=== PATIENT | female | born 1975 | race Hispanic/Latino ===

== ENCOUNTER 2019-08-18 08:23 | Emergency (ER) | payer OTHER, SELFPAY ==
--- NOTE | 2019-08-18 10:04 | ER ---
Nurse's Notes [facility] Name: Eugenia Valenzuela Age: 43 yrs Sex: Female : 1975 Arrival Date: 08/18/2019 Time: 08:25 Bed 14 Private MD: Diagnosis: Radiculopathy, cervical region;Strain of muscle, fascia and tendon at neck level Presentation: 08/17 08:26 Chief complaint: Patient states: PAIN RADIATING FROM R NECK DOWN RUE. Coronavirus bp screen: Proceed with normal triage. Ebola Screen: No symptoms or risks identified at this time. Acute neurological deficit: none identified. Initial Sepsis Screen: Does the patient meet any 2 criteria? HR > 90 bpm. No. Patient's initial sepsis screen is negative. Does the patient have a suspected source of infection? No. Patient's initial sepsis screen is negative. Risk Assessment: Do you want to hurt yourself or someone else? Patient reports no desire to harm self or others. Onset of symptoms was August 18, 2019. 08:26 Method Of Arrival: Ambulatory bp 08:26 Acuity: PERRI 4 bp Triage Assessment: 08:26 General: Appears in no apparent distress. uncomfortable, Behavior is cooperative, bp appropriate for age, anxious, PT STATES CURRENT HTN ABNORMAL, NORMALLY BP WNL. Pain: Complains of pain in right arm. EENT: No deficits noted. Neuro: Level of Consciousness is awake, alert, obeys commands, Oriented to Appropriate for age Tentmaker are equal bilaterally Moves all extremities. Full function. Cardiovascular: Rhythm is sinus tachycardia. Respiratory: No deficits noted. GI: No signs and/or symptoms were reported involving the gastrointestinal system. : No signs and/or symptoms were reported regarding the genitourinary system. Derm: No deficits noted. Musculoskeletal: No deficits noted. 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 - Social history:: Smoking status: Patient denies any tobacco usage or history of. - Family history:: not pertinent. - Hospitalizations: : No recent hospitalization is reported. Screenin:26 Abuse screen: Denies threats or abuse. Denies injuries from another. Nutritional bp screening: No deficits noted. Tuberculosis screening: No symptoms or risk factors identified. Fall Risk None identified. Assessment: 08:26 General: SEE TRIAGE NOTE. Neuro: Oriented to Appropriate for age Tentmaker are equal bp bilaterally Moves all extremities. Full function. 08:42 Reassessment: PT D/C HOME AMBULATORY, DX WITH CERVICAL RADICULOPATHY. bp Vital Signs: 08:26 BP 185 / 99; Pulse 112; Resp 17; Temp 98.6; Pulse Ox 100% ; Weight 54.43 kg; Height 5 bp ft. 2 in. (157.48 cm); 08:26 Body Mass Index 21.95 (54.43 kg, 157.48 cm) bp ED Course: 08:25 Patient arrived in ED. as 08:25 Javier Rg MD is Attending Physician. rn 08:26 Arm band placed on. bp 08:26 Patient has correct armband on for positive identification. Bed in low position. Call bp light in reach. Side rails up X2. 08:37 Tony Mccloud, RN is Primary Nurse. bp 08:38 Triage completed. bp 08:41 No provider procedures requiring assistance completed. Patient did not have IV access bp during this emergency room visit. Administered Medications: No medications were administered Outcome: 08:37 Discharge ordered by . rn 08:41 Discharged to home ambulatory. bp 08:41 Condition: stable 08:41 Discharge instructions given to patient, Instructed on discharge instructions, follow up and referral plans. medication usage, Demonstrated understanding of instructions, follow-up care, medications, Prescriptions given X 2. 08:53 Patient left the ED. bp Signatures: Rosita Scales as Javier Rg MD MD rn Peltier, Brian, RN RN bp
--- NOTE | 2019-08-18 10:04 | EDPHYS ---
Physician Documentation [facility] Name: Eugenia Valenzuela Age: 43 yrs Sex: Female : 1975 Arrival Date: 08/18/2019 Time: 08:25 Bed 14 Private MD: ED Physician Javier Rg HPI: 08/17 08:33 This 43 yrs old Female presents to ER via Unassigned with complaints of Neck rn Pain, >24Hrs Old, Shoulder Pain, Arm Pain. 08:33 The patient or guardian complains of pain, that is acute. The symptoms are located on rn the right posterior lateral neck. Onset: The symptoms/episode began/occurred 2 week(s) ago. Associated signs and symptoms: Pertinent negatives: fever, headache, bladder incontinence, bowel incontinence, numbness, tingling, weakness. The pain radiates to the right arm. Modifying factors: The symptoms are alleviated by nothing. the symptoms are aggravated by movement. Severity of symptoms: At their worst the symptoms were moderate, in the emergency department the symptoms are unchanged. The patient has not experienced similar symptoms in the past. Reports right sided neck pain, began a couple of weeks ago, no trauma, no fever, hurts to turn to side, feels like pain shoots down right arm, no chest pain/sob. No weakness. No headache. . 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 - Social history:: Smoking status: Patient denies any tobacco usage or history of. - Family history:: not pertinent. - Hospitalizations: : No recent hospitalization is reported. 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 Exam: 08:33 Constitutional: This is a well developed, well nourished patient who is awake, alert, rn and in no acute distress. Ambulatory to room without assistance. Head/Face: Normocephalic, atraumatic. Neck: No midline tenderness, No LAD. Cardiovascular: Regular rate and rhythm. No pulse deficits. Respiratory: Speaking full sentences, unlabored. Skin: Warm, dry with normal turgor. Normal color with no rashes, no lesions, and no evidence of cellulitis. MS/ Extremity: Pulses equal, no cyanosis. Neurovascular intact. Full, normal range of motion. Equal circumference. Neuro: Awake and alert, GCS 15, oriented to person, place, time, and situation. Cranial nerves II-XII grossly intact. Motor strength 5/5 in all extremities. Sensory grossly intact. Cerebellar exam normal. Normal gait. Vital Signs: 08:26 BP 185 / 99; Pulse 112; Resp 17; Temp 98.6; Pulse Ox 100% ; Weight 54.43 kg; Height 5 bp ft. 2 in. (157.48 cm); 08:26 Body Mass Index 21.95 (54.43 kg, 157.48 cm) bp MDM: 08:27 Patient medically screened. rn 08:33 Differential diagnosis: Cervical Discogenic Pain Cervical Raiculopathy Cervical rn Spondylosis cervical strain, Osteoarthritis torticollis. Data reviewed: vital signs, nurses notes, and as a result, I will discharge patient. Counseling: I had a detailed discussion with the patient and/or guardian regarding: the historical points, exam findings, and any diagnostic results supporting the discharge/admit diagnosis, the need for outpatient follow up, to return to the emergency department if symptoms worsen or persist or if there are any questions or concerns that arise at home. Special discussion: I discussed with the patient/guardian in detail that at this point there is no indication for admission to the hospital. It is understood, however, that if the symptoms persist or worsen the patient needs to return immediately for re-evaluation. Further emergent ED testing is not indicated at this point in time. I discussed with the patient/guardian in detail the need to arrange with the PCP or specialist further outpatient testing, MRI. Administered Medications: No medications were administered Disposition: 08/18/19 08:37 Discharged to Home. Impression: Radiculopathy, cervical region, Strain of muscle, fascia and tendon at neck level. - Condition is Stable. - Discharge Instructions: Cervical Radiculopathy. - Prescriptions for Cyclobenzaprine 10 mg Oral Tablet - take 1 tablet by ORAL route every 8 hours As needed; 20 tablet. Medrol (Shaquille) 4 mg Oral Tablets, Dose Pack - take 1 tablet by ORAL route as directed - follow package instructions; 1 packet. - Medication Reconciliation Form, Thank You Letter, Antibiotic Education, Prescription Opioid Use, Work release form form. - Follow up: Private Physician; When: As needed; Reason: Recheck today's complaints, Re-evaluation by your physician. - Problem is an ongoing problem. - Symptoms are unchanged. Signatures: Javier Rg MD MD rn Tony Mccloud RN RN bp Corrections: (The following items were deleted from the chart) 08:53 08:37 08/18/2019 08:37 Discharged to Home. Impression: Radiculopathy, cervical region; bp Strain of muscle, fascia and tendon at neck level. Condition is Stable. Forms are Medication Reconciliation Form, Thank You Letter, Antibiotic Education, Prescription Opioid Use. Follow up: Private Physician; When: As needed; Reason: Recheck today's complaints, Re-evaluation by your physician. Problem is an ongoing problem. Symptoms are unchanged. rn
== END 2019-08-18 08:53 | disposition home or self-care (01) ==
LOC: ER 08:23
DX: M54.12 Radiculopathy, cervical region (principal); S16.1XXA Strain of muscle, fascia and tendon at neck level, initial encounter
CPT/HCPCS: 99284

== ENCOUNTER 2019-08-19 19:43 | Emergency (ER) | payer SELFPAY ==
[2019-08-19] MEDS ORDERED: dexAMETHasone 10 MG/ML VIAL ONE (20:25)
--- NOTE | 2019-08-19 21:09 | EDPHYS ---
Physician Documentation [facility] Name: Eugenia Valenzuela Age: 43 yrs Sex: Female : 1975 Arrival Date: 08/19/2019 Time: 19:45 Bed 5 Private MD: ED Physician Maikol Altman HPI: 08/18 20:25 This 43 yrs old Female presents to ER via Ambulatory with complaints of pm1 Numbness in Right Thumb. 20:25 The patient or guardian reports numbness and pain to tip of right thumb. The complaints pm1 affect the palmar aspect of distal phalanx of right thumb. Context: Patient seen here yesterday for the same complaint and was diagnosed with cervical radiculopathy. She was prescribed medrol dose shaquille and flexeril. Has taken two days of medrol dose shaquille and reports resolution of her neck pain but has pain to right forearm and right thumb when the medication, Flexeril runs out. 20:25 Onset: The symptoms/episode began/occurred 2 week(s) ago. Modifying factors: The pm1 symptoms are alleviated by Associated signs and symptoms: Pertinent negatives: fever. Severity of symptoms: in the emergency department the symptoms have improved. The patient has been recently seen at the [facility] Emergency Department, yesterday, for same complaint and diagnosed with cervical radiculopathy. Historical: - Allergies: 20:10 No Known Allergies; sg - PMHx: 20:10 Cervical Radiculopathy; sg - Immunization history:: Adult Immunizations up to date. - Social history:: Smoking status: Patient denies any tobacco usage or history of. ROS: 20:25 Constitutional: Negative for fever, chills, and weight loss. pm1 20:25 Cardiovascular: Negative for chest pain, palpitations, and edema, Respiratory: Negative for shortness of breath, cough, wheezing, and pleuritic chest pain, Abdomen/GI: Negative for abdominal pain, nausea, vomiting, diarrhea, and constipation, Back: Negative for injury and pain. 20:25 Skin: Negative for injury, rash, and discoloration. 20:25 Neck: Positive for neck pain that has resolved, Negative for pain with movement, stiffness. 20:25 MS/extremity: Positive for pain, of the palmar aspect of distal phalanx of right thumb and right arm. 20:25 Neuro: Positive for numbness, tingling, of the palmar aspect of distal phalanx of right thumb, Negative for headache, weakness. Exam: 20:25 Constitutional: This is a well developed, well nourished patient who is awake, alert, pm1 and in no acute distress. Head/Face: Normocephalic, atraumatic. Neck: Trachea midline, no thyromegaly or masses palpated, and no cervical lymphadenopathy. Supple, full range of motion without nuchal rigidity, or vertebral point tenderness. No Meningismus. Chest/axilla: Normal chest wall appearance and motion. Nontender with no deformity. No lesions are appreciated. 20:25 Back: No spinal tenderness. No costovertebral tenderness. Full range of motion. Skin: Warm, dry with normal turgor. Normal color with no rashes, no lesions, and no evidence of cellulitis. MS/ Extremity: Pulses equal, no cyanosis. Neurovascular intact. Full, normal range of motion. 20:25 Cardiovascular: Exam negative for acute changes, Rate: normal, Rhythm: regular, Pulses: no pulse deficits are appreciated. 20:25 Respiratory: Exam negative for acute changes, the patient does not display signs of respiratory distress. 20:25 Neuro: Exam negative for acute changes, focal neuro deficits, Orientation: is normal, Mentation: is normal, Sensation: no obvious gross deficits. Vital Signs: 20:08 BP 142 / 77; Pulse 78; Resp 18; Temp 97.7; Pulse Ox 100% on R/A; Pain 6/10; sg 21:16 BP 161 / 99; Pulse 94; Resp 16; Pulse Ox 99% on R/A; Pain 0/10; jb4 MDM: 20:24 Patient medically screened. pm1 20:24 Data reviewed: vital signs. Data interpreted: Pulse oximetry: on room air is 100 %. pm1 Interpretation: normal. 20:25 Refusal of service: The patient/guardian displays adequate decision making capability pm1 and despite a detailed discussion of alternatives, benefits, risks, and consequences refuses: CT Scan, of neck. Patient reports that her neck pain has resolved but she is continuing to have pain and numbness to tip of right thumb and pain the right forearm when the medication wears off. 21:08 Counseling: I had a detailed discussion with the patient and/or guardian regarding: the pm1 historical points, exam findings, and any diagnostic results supporting the discharge/admit diagnosis, the need for outpatient follow up, to return to the emergency department if symptoms worsen or persist or if there are any questions or concerns that arise at home. 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 pm1 Administered Medications: 20:32 Drug: Decadron 10 mg Route: IM; Site: left gluteus; jb4 21:16 Follow up: Response: No adverse reaction; Pain is decreased jb4 Disposition: 08/19 06:53 Co-signature as Attending Physician, Maikol Altman MD I agree with the assessment and tw4 plan of care. Disposition: 08/19/19 21:08 Discharged to Home. Impression: Radiculopathy, cervical region. - Condition is Stable. - Discharge Instructions: Cervical Radiculopathy. - Prescriptions for Tylenol- Codeine #3 300-30 mg Oral Tablet - take 2 tablets by ORAL route every 6 hours As needed; 20 tablet. Medrol (Shaquille) 4 mg Oral Tablets, Dose Pack - take 1 tablet by ORAL route as directed - follow package instructions; 1 packet. - Medication Reconciliation Form, Thank You Letter, Antibiotic Education, Prescription Opioid Use, Work release form form. - Follow up: Emergency Department; When: As needed; Reason: Worsening of condition. Follow up: Private Physician; When: 2 - 3 days; Reason: Recheck today's complaints, Continuance of care, Re-evaluation by your physician. - Problem is new. - Symptoms have improved. Signatures: Leo Mas RN RN Polo Schultz NP ALARM SIGNAL OPERATOR pm1 Hakan Vazquez RN RN jb4 Maikol Altman MD MD tw4 Corrections: (The following items were deleted from the chart) 08/18 21:22 21:08 08/19/2019 21:08 Discharged to Home. Impression: Radiculopathy, cervical region. jb4 Condition is Stable. Forms are Medication Reconciliation Form, Thank You Letter, Antibiotic Education, Prescription Opioid Use. Follow up: Emergency Department; When: As needed; Reason: Worsening of condition. Follow up: Private Physician; When: 2 - 3 days; Reason: Recheck today's complaints, Continuance of care, Re-evaluation by your physician. Problem is new. Symptoms have improved. pm1
--- NOTE | 2019-08-19 21:09 | ER ---
Nurse's Notes [facility] Name: Eugenia Valenzuela Age: 43 yrs Sex: Female : 1975 Arrival Date: 08/19/2019 Time: 19:45 Bed 5 Private MD: Diagnosis: Radiculopathy, cervical region Presentation: 08/18 20:08 Chief complaint: Patient states: Was seen here and given muscle relaxer and steroids sg for radiculopathy of the neck, reports neck is feeling better but is having pain in numbness from shoulder down to the tumb on the RUE. Coronavirus screen: Proceed with normal triage. Ebola Screen: Patient negative for fever greater than or equal to 101.5 degrees Fahrenheit, and additional compatible Ebola Virus Disease symptoms Patient denies exposure to infectious person. Patient denies travel to an Ebola-affected area in the 21 days before illness onset. No symptoms or risks identified at this time. Initial Sepsis Screen: Does the patient meet any 2 criteria? No. Patient's initial sepsis screen is negative. Does the patient have a suspected source of infection? No. Patient's initial sepsis screen is negative. Risk Assessment: Do you want to hurt yourself or someone else? Patient reports no desire to harm self or others. Onset of symptoms was August 19, 2019. Care prior to arrival: Medication(s) given: Motrin, 800 mg, decreased pain. 20:08 Acuity: PERRI 4 sg 20:08 Method Of Arrival: Ambulatory sg Historical: - Allergies: 20:10 No Known Allergies; sg - PMHx: 20:10 Cervical Radiculopathy; sg - Immunization history:: Adult Immunizations up to date. - Social history:: Smoking status: Patient denies any tobacco usage or history of. Screenin:08 Abuse screen: Denies threats or abuse. Nutritional screening: No deficits noted. jb4 Tuberculosis screening: No symptoms or risk factors identified. Fall Risk None identified. Assessment: 20:00 General: Appears in no apparent distress. uncomfortable, Behavior is calm, cooperative. jb4 Pain: Complains of pain in Right thumb Pain radiates to right arm Pain currently is 6 out of 10 on a pain scale. Quality of pain is described as tingling, Numbing Pain began 1 day ago. Is continuous. Neuro: Level of Consciousness is awake, alert, obeys commands, Oriented to person, place, time, situation. Cardiovascular: Patient's skin is warm and dry. Respiratory: Airway is patent Respiratory effort is even, unlabored, Respiratory pattern is regular, symmetrical. GI: No signs and/or symptoms were reported involving the gastrointestinal system. : No signs and/or symptoms were reported regarding the genitourinary system. EENT: No signs and/or symptoms were reported regarding the EENT system. Derm: Skin is intact, Skin is pink, warm \T\ dry. Musculoskeletal: Circulation, motion, and sensation intact. Range of motion: intact in all extremities. 21:21 Reassessment: Patient appears in no apparent distress at this time. Patient and/or jb4 family updated on plan of care and expected duration. Pain level reassessed. Patient is alert, oriented x 3, equal unlabored respirations, skin warm/dry/pink. PT reports still feeling numbness but overall feels better and denies pain. Pt verbalized understanding of D/c and follow up instructions. Denies questions or concerns. Patient denies pain at this time. Vital Signs: 20:08 BP 142 / 77; Pulse 78; Resp 18; Temp 97.7; Pulse Ox 100% on R/A; Pain 6/10; sg 21:16 BP 161 / 99; Pulse 94; Resp 16; Pulse Ox 99% on R/A; Pain 0/10; jb4 ED Course: 19:45 Patient arrived in ED. cf2 20:00 Hakan Vazquez, RN is Primary Nurse. jb4 20:08 Patient has correct armband on for positive identification. Bed in low position. Call jb4 light in reach. Side rails up X 1. Pulse ox on. NIBP on. 20:09 Polo Schultz NP is PHCP. pm1 20:09 Maikol Altman MD is Attending Physician. pm1 20:09 Triage completed. sg 20:10 Arm band placed on. sg 21:22 No provider procedures requiring assistance completed. Patient did not have IV access jb4 during this emergency room visit. Administered Medications: 20:32 Drug: Decadron 10 mg Route: IM; Site: left gluteus; jb4 21:16 Follow up: Response: No adverse reaction; Pain is decreased jb4 Outcome: 21:08 Discharge ordered by . pm1 21:22 Discharged to home ambulatory. jb4 21:22 Condition: stable 21:22 Discharge instructions given to patient, Instructed on discharge instructions, follow up and referral plans. medication usage, Demonstrated understanding of instructions, follow-up care, medications, Prescriptions given X 2. 21:22 Patient left the ED. jb4 Signatures: Leo Mas RN RN sg Polo Schultz, PRACTICE ARCHITECT PRACTICE ARCHITECT pm1 Hakan Vazquez RN RN jb4 Maura Ponce cf2 Corrections: (The following items were deleted from the chart) 21:21 21:16 BP 161 / 99; Pulse 94bpm; Resp 16bpm; Pulse Ox 99% RA; Pain 6/10; jb4 jb4
[2019-08-19 21:53] VITALS: TEMP 97.7
[2019-08-19 21:54] VITALS: BP 161/99; O2SAT 99
== END 2019-08-19 21:22 | disposition home or self-care (01) ==
LOC: ER 19:43
DX: M54.12 Radiculopathy, cervical region (principal)
CPT/HCPCS: 96372; 99283; J1100

== ENCOUNTER 2022-05-01 09:18 | Emergency (ER) | payer SELFPAY ==
--- OUTSIDE RECORDS SUMMARY | 2022-05-01 09:22 | XMS REPORT | Continuity of Care Document ---
:1975 Author Organization [facility] [place] [facility] t Address [address] [place] [address] [address]. [address] [place] [address] Care Team Providers Name Role Phone Jenny Vizcarra Primary Care Physician Jenny Vizcarra Attending Clinician Ronal Castillo MD Attending Clinician [facility] Attending Clinician JENNY FIGUEROA Attending Clinician Unavailable DAIANA SANTO Attending Clinician Unavailable Doctor Unassigned, [place] Attending Clinician Unavailable Mary Tello RN Attending Clinician Unavailable Only, Jordy Db Test Attending Clinician Unavailable Rena Caro Attending Clinician RENA GUTIERRES Attending Clinician Unavailable Vaccine, Adc Family Attending Clinician Unavailable JULIO CESAR VILLEDA Attending Clinician Unavailable Julio Cesar Villeda MD Attending Clinician Provider, [facility] Attending Clinician Unavailable Christianne Higginbotham Attending Clinician [phone] CHRISTIANNE PATINO Attending Clinician Unavailable CHRISTIANNE PATINO Admitting Clinician Unavailable Payers Payer Name Policy Type Policy Number Effective Date Expiration Date S ource Problems Condition Condition Condition Status Onset Resolution Last Treating Co mments Source Name Details Category Date Date Treatment Clinician Date Uncontroll Uncontroll Disease Active [facility] 3[facility] [place] Tobacco Tobacco Disease Active Univers use use 3-18 ity of disorder disorder 00:00: [place] 00 [facility] Other Other Disease Active Univers general general 2-05 [place] of counseling [place] and advice 00 Wi dical for for Branch contracept contracept meme meme management management Elevated Elevated Disease Active Unive rs blood blood 2-05 ity of pressure pressure 00:00: [place] reading reading 00 Medical without without Branch diagnosis diagnosis of of hypertensi hypertensi on on Over Over Disease Active Univers weight weight 2-05 ity of 00:00: [place] 00 [facility] History of History of Disease Active U nivers tubal tubal 2-05 ity of ligation ligation 00:00: [address] Allergies, Adverse Reactions, Alerts This patient has no known allergies or adverse reactions. Social History Social Habit Start Date Stop Date Quantity Comments Source History of tobacco Cigarette Smoker University of use [facility] Cigarettes smoked 2021-06-18 2021-06-18 Univers ity of current (pack per 00:00:00 00:00:00 [facility] ) - Reported Branch Cigarette 2021-06-18 2021-06-18 University of pack-years 00:00:00 00:00:00 [facility] Tobacco use and 2021-06-18 2021-06-18 Smokeless Universit y of exposure 00:00:00 00:00:00 tobacco non-user [facility] Alcohol intake 2021-06-18 2021-06-18 Current drinker Unive rsity of 00:00:00 00:00:00 of alcohol [facility] (finding) [place] Sex Ass[birth year] Universit y of 00:00:00 00:00:00 [facility] Smoking Status Start Date Stop Date Source Occasional tobacco smoker 2021-06-18 00:00:00 Un iversity of [facility] Medications Ordered Filled Start Stop Current Ordering Indication Dosage Frequency Signature Comments Components Source Medication Medication Date Date Medication? Clinician (SIG) Name Name amLODIPine Yes [id number] 5mg Take 1 U nivers 5 mg tablet 9-26 tablet by ity of 00:00: mouth in [place] 00 the Medical morning. Branch Follow-up for refills and fasting labs. amLODIPine 2021-0 Yes [id number] 5mg Take 1 U nivers 5 mg tablet 9-26 tablet by ity of 00:00: mouth in [place] 00 the Medical morning. Branch Follow-up for refills and fasting labs. AMLODIPINE 2021-0 Yes [id number] 5mg TAKE 1 U nivers 5 mg tablet 7-10 TABLET BY ity of 00:00: MOUTH [place] 00 DAILY. Medical FOLLOW-UP Branch FOR REFILLS AND FASTING LABS. AMLODIPINE 2021-0 2022- No [id number] 5mg TAKE 1 Univers 5 mg tablet 7-10 09-22 TABLET BY it y of 00:00: 00:00 MOUTH [place] 00 :00 DAILY. Medical FOLLOW-UP Branch FOR REFILLS AND FASTING LABS. amLODIPine 2021-0 2022- No [id number] 5mg Take 1 Univers 5 mg tablet 6-12 07-10 tablet by it y of 00:00: 00:00 mouth [place] 00 :00 daily. Medical Follow-up Branch for refills and fasting labs. Immunizations Ordered Filled Immunization Date Status Comments [facility] e Immunization Name Name SARS-COV-2 COVID-19 2020-11-01 Completed Unive rsity of PFIZER VACCINE 00:00:00 [facility] SARS-COV-2 COVID-19 2020-11-01 Completed Unive rsity of PFIZER VACCINE 00:00:00 [facility] SARS-COV-2 COVID-19 2020-11-01 Completed Unive rsity of PFIZER VACCINE 00:00:00 [facility] SARS-COV-2 COVID-19 2020-10-11 Completed Unive rsity of PFIZER VACCINE 00:00:00 [facility] SARS-COV-2 COVID-19 2020-10-11 Completed Unive rsity of PFIZER VACCINE 00:00:00 [facility] SARS-COV-2 COVID-19 2020-10-11 Completed Unive rsity of PFIZER VACCINE 00:00:00 [facility] TDAP 2016-12-22 Completed University of 00:00:00 [facility] TDAP 2016-12-22 Completed University 00:00:00 [facility] TDAP 2016-12-22 Completed University 00:00:00 [facility] Procedures This patient has no known procedures. Encounters Start End Encounter Admission Attending Care Care Encounter Source Date/Time Date/Time Type Type Clinicians Facility Department ID 2022-01-25 2022-01-25 [facility] [id number] [id number] Univers 00:00:00 00:00:00 Jenny A HEALTH [id number] i ty of [place] 4.2.7.2.686 Sajan as MERRY?BLEA [phone] [address] OFFICE [facility] 2021-12-23 2021-12-23 [facility] [id number] Univers 00:00:00 00:00:00 Jenny A HEALTH [id number] i ty of [place] [id number] Sajan as MERRY?BLEA [id number] [address] 2021-10-05 2021-10-05 [facility] [id number] Univers 00:00:00 00:00:00 Jenny A HEALTH [id number] i ty of [place] [id number] Sajan as MERRY?BLEA [id number] [address] 2021-09-09 2021-09-09 [facility] [id number] Univers 00:00:00 00:00:00 Ronal HEALTH [id number] it y of [place] [id number] Sajan as MERRY?BLEA [id number] [address] 2021-08-13 2021-08-13 [facility] [id number] Univers 00:00:00 00:00:00 Ronal HEALTH [id number] it y of [place] [id number] Sajan as MERRY?BLEA [id number] [address] 2021-07-19 2021-07-19 [facility] [id number] Univers 00:00:00 00:00:00 Jenny A HEALTH [id number] i ty of [place] [id number] Sajan as MERRY?BLEA [id number] [address] OFFICE [facility] 2021-07-17 2021-07-17 [facility] [id number] Univers 00:00:00 00:00:00 Jenny A HEALTH [id number] i ty of [place] [id number] Sajan as MERRY?BLEA [id number] [address] OFFICE [facility] 2021-06-21 2021-06-21 [facility] 1.2.840.114 [id number] Univers 00:00:00 00:00:00 Outreach Annie Campbell HEALTH 350.1.13.10 i ty of [place] 4.2.7.2.686 Sajan as MERRY?BLEA [id number] [address] OFFICE [facility] 2021-06-18 2021-06-18 [facility] [id number] Univers 10:00:00 10:00:00 [facility] 2021-06-12 2021-06-12 Outpatient R HANSA [facility] [id number] Univers 17:00:00 17:00:00 [facility]IA[facility] 2021-06-12 2021-06-12 Orders Doctor MACARIO [id number] Univers 00:00:00 00:00:00 Only UnassignedMARLENA 350.1.13.10 ity of [place] [facility] 4.2.7.2.686 Sajan as [phone] [facility] 009 [place] 2021-04-18 2021-04-18 Telephone RENALDO Tello [id number] Univers 00:00:00 00:00:00 Mary MENDIOLA 350.1.13.10 i ty of [facility] 4.2.7.2.686 Sajan as [id number] [facility] 019 [place] 2021-04-17 2021-04-17 Laboratory Only, Ang Db Test [facility] 1.2.8 40.114 [id number] Univers 12:45:00 13:00:00 Only Rena Gutierres [facility] 350.1.13.10 ity of [place] 4.2.7.2.686 Sajan as MERRY?BLEA [phone] Wi tatyana [facility] OFFICE BUILDING 2021-04-17 2021-04-17 Outpatient R NENITA [facility] [id number] Univers 12:45:00 12:45:00 RENA [facility] 2020-11-01 2020-11-01 Outpatient R NENITA [facility] [id number] Univers 09:40:00 10:28:44 RENA [facility] 2020-11-01 2020-11-01 Imm/Inj Vaccine, [facility] 1.2.84 0.114 [id number] Univers 09:35:55 09:45:55 Visit Rena Gutierres [facility] [id number] ity of [place] 4.2.7.2.686 Sajan as Professio [id number] [address] One 2020-11-01 2020-11-01 Outpatient R RONAL [facility] [id number] Univers 09:30:00 09:30:00 JULIO CESAR [facility] 2020-10-11 2020-10-11 Imm/Inj Vaccine, [facility] 1.2.84 0.114 [id number] Univers 09:43:58 10:29:19 Visit Julio Cesar Villeda [facility] 350.1.13.10 ity of [place] 4.2.7.2.686 Sajan as Professio [phone] [address] Office [facility] One 2020-10-11 2020-10-11 Urgent Provider, [facility] 1.2.840.114 [id number] Univers 08:57:06 10:28:34 Care Julio Cesar Villeda Health 350.1.13.10 ity of [place] 4.2.7.2.686 Sajan as Professio [id number] [address] Office [facility] 2020-10-11 2020-10-11 Outpatient R RONAL [facility] [id number] Univers 09:20:00 09:20:00 JULIO CESAR ity of [facility] 2020-06-12 2020-06-12 [facility] [id number] Univers 12:53:33 13:32:20 Visit Christianne C SOLVENT RECOVERER 350.1.13.10 ity of [facility] 4.2.7.2.686 Sajan as MATERNAL [id number] [facility] [address] [place] [address] 2020-06-12 2020-06-12 [facility] [id number] Univers 13:15:00 13:15:[address] [facility] 2020-06-03 2020-06-03 [facility] [id number] Univers 06:30:13 23:59:[address] [facility] 2020-06-03 2020-06-03 [facility] 1.2.840.114 [id number] Univers 06:30:13 23:59:00 Encounter Christianne C SPECIALTY 350.1.13.10 ity of [place]2.[place] [phone] Wi mikael[address] 2020-05-14 2020-05-14 Telephone [facility] 1.2.840.114 [id number] Univers 00:00:00 00:00:00 Christianne C SOLVENT RECOVERER 350.1.13.10 ity of REGIONAL 4.2.7.2.686 Sajan as MATERNAL [phone] [facility] [address] [place] [address] 2020-05-08 2020-05-08 [facility] [id number] Univers 12:45:28 13:45:29 Visit Christianne C SOLVENT RECOVERER 350.1.13.10 ity of REGIONAL 4.2.7.2.686 Sajan as MATERNAL [phone] [facility] & CHILD [address] [place] [address] 2020-05-08 2020-05-08 [facility] [id number] Univers 12:45:00 12:45:00 CHRISTIANNE graham o f [facility] 2020-05-08 2020-05-08 Orders Doctor RENALDO [id number] [facility] 00:00:00 00:00:00 Only Unassigned, MARLENA 350.1.13.10 ity of [place] [facility] 4.2.7.2.686 Sajan as [phone] [facility] 009 Branch Results This patient has no known results.
[2022-05-01] MEDS ORDERED: TDAP (DIPHTH,PERTUSS(ACELL),TET VAC) 0.5 ML VIAL IMVAC ONE (09:52)
[2022-05-01] MEDS ORDERED: SMZ./TMP. 800/160 MG TABLET ONE (09:52)
[2022-05-01] MEDS ORDERED: LIDOCAINE 1% MPF 5 ML VIAL ONE (09:52)
--- NOTE | 2022-05-01 10:03 | EDPHYS ---
Physician Documentation [facility] Name: Eugenia Valenzuela Age: 46 yrs Sex: Female : 1975 Arrival Date: 05/01/2022 Time: 09:21 Bed 13 Private MD: Antonino Tejeda HPI: 05/01 09:37 This 46 yrs old Female presents to ER via Ambulatory with complaints of snw Abscess. 09:37 Onset: The symptoms/episode began/occurred 3 week(s) ago, and became persistent. snw Associated signs and symptoms: The patient has no apparent associated signs or symptoms. Severity of symptoms: At their worst the symptoms were moderate. The patient has not experienced similar symptoms in the past. The patient has not recently seen a physician. 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 - Social history:: Smoking status: Patient reports the use of cigarette tobacco products, smokes one-half pack cigarettes per day, Patient uses alcohol, on a daily basis. ROS: 09:37 Skin: Positive for abscess, of the pelvis. snw Exam: 09:35 Constitutional: This is a well developed, well nourished patient who is awake, alert, snw and in no acute distress. Head/Face: Normocephalic, atraumatic. Eyes: Pupils equal round and reactive to light, extra-ocular motions intact. Lids and lashes normal. Conjunctiva and sclera are non-icteric and not injected. Cornea within normal limits. Periorbital areas with no swelling, redness, or edema. ENT: Nares patent. No nasal discharge, no septal abnormalities noted. Tympanic membranes are normal and external auditory canals are clear. Oropharynx with no redness, swelling, or masses, exudates, or evidence of obstruction, uvula midline. Mucous membranes moist. 09:35 Skin: Appearance: normal except for affected area, abscess, that is small, approximately 2 cm(s), of the low left lateral pelvis. Vital Signs: 09:26 BP 177 / 81; Pulse 103; Resp 18; Temp 98.0(O); Pulse Ox 100% on R/A; Weight 65.77 kg; ld1 Height 5 ft. 2 in. (157.48 cm); Pain 4/10; 10:22 BP 162 / 104; Pulse 98; Resp 18; Pulse Ox 100% on R/A; db 09:26 Body Mass Index 26.52 (65.77 kg, 157.48 cm) ld1 Procedures: 09:37 I \T\ D: Incision and drainage was performed for an abscess of the left Prepped with snw suraj. Anesthetized with 5 ml's 1% Lidocaine. Incised with #10 blade. Drained small amount purulent fluid. Loculations removed. Dressing: sterile 4x4 gauze, the patient tolerated the procedure well. MDM: 09:22 Patient medically screened. snw 09:46 Differential diagnosis: abscess, cellulitis. Data reviewed: vital signs, nurses notes. snw I considered the following discharge prescriptions or medication management in the emergency department Medications were administered in the Emergency Department. See MAR. Care significantly affected by the following chronic conditions: smoking. Counseling: I had a detailed discussion with the patient and/or guardian regarding: the historical points, exam findings, and any diagnostic results supporting the discharge/admit diagnosis, the presence of at least one elevated blood pressure reading (>120/80) during this emergency department visit, the need for outpatient follow up, for definitive care, to return to the emergency department if symptoms worsen or persist or if there are any questions or concerns that arise at home. Counseling: I had a detailed discussion with the patient and/or guardian regarding: smoking cessation. Response to treatment: the patient's symptoms have markedly improved after treatment. Special discussion: I have referred the patient to see his PCP for further evaluation of high blood pressure. Based on the history and exam findings, there is no indication for further emergent testing or inpatient evaluation. I discussed with the patient/guardian the need to see the primary care provider for further evaluation of the symptoms. 05/01 09:41 Order name: Suture Tray Setup; Complete Time: 09:55 snw Administered Medications: 09:50 Drug: Lidocaine (1 %) 5 mg Volume: 5 ml; Route: Infiltration; db 10:18 Follow up: Response: No adverse reaction; used by provider in I\T\D db 09:50 Drug: Hibiclens (chlorhexidine) Liquid 4 % 1 application Route: Topical; Site: wound; db 09:50 Drug: Boostrix Tdap 0.5 ml Route: IM; Site: right deltoid; db 10:18 Follow up: Response: No adverse reaction db 09:50 Drug: Bactrim (trimethoprim-sulfamethoxazole) (160 mg-800 mg (DS) 1 tablet Route: PO; db 10:18 Follow up: Response: No adverse reaction db Disposition: 10:03 Chart complete. snw Disposition Summary: 05/01/22 10:02 Discharge Ordered Location: Home snw Condition: Stable snw Diagnosis - Cutaneous abscess, unspecified snw Followup: snw - With: Emergency Department - When: As needed - Reason: Worsening of condition Followup: snw - With: Private Physician - When: 2 - 3 days - Reason: Recheck today's complaints, Continuance of care, Re-evaluation by your physician Discharge Instructions: - Discharge Summary Sheet snw - Skin Abscess snw - Incision and Drainage snw - Steps to Quit Smoking snw - Health Risks of Smoking snw - DASH Eating Plan snw - Heat Therapy snw - Form - Blood Pressure Record Sheet snw - How to Take Your Blood Pressure snw Forms: - Work release form snw - Medication Reconciliation Form snw - Thank You Letter snw - Antibiotic Education snw - Prescription Opioid Use snw Prescriptions: - mupirocin 2 % Topical ointment - apply 1 application by TOPICAL route 3 times per day for 10 days; 50 gram; snw Refills: 0, Product Selection Permitted - Tramadol 50 mg Oral Tablet - take 1 tablet by ORAL route every 8 hours as needed; 12 tablet; Refills: 0, snw Product Selection Permitted - Bactrim DS 800-160 mg Oral Tablet - take 1 tablet by ORAL route every 12 hours for 10 days; 20 tablet; Refills: 0, snw Product Selection Permitted Signatures: Sharon Martínez FNP-C FNP-Csnw Janeth Kim, RN RN ld1 Yoselyn Brown, RN RN db
--- NOTE | 2022-05-01 10:03 | ER ---
Nurse's Notes [facility] Name: Eugenia Valenzuela Age: 46 yrs Sex: Female : 1975 Arrival Date: 05/01/2022 Time: 09:21 Bed 13 Private MD: Diagnosis: Cutaneous abscess, unspecified Presentation: 05/01 09:26 Chief complaint: Patient states: abscess to groin - 2-3 days ago. Reports pain and ld1 swelling - "I think it may need to be drained.". Coronavirus screen: At this time, the client does not indicate any symptoms associated with coronavirus-19. Ebola Screen: No symptoms or risks identified at this time. Initial Sepsis Screen: Does the patient meet any 2 criteria? No. Patient's initial sepsis screen is negative. Does the patient have a suspected source of infection? No. Patient's initial sepsis screen is negative. Risk Assessment: Do you want to hurt yourself or someone else? Patient reports no desire to harm self or others. Onset of symptoms was May 01, 2022. 09:26 Method Of Arrival: Ambulatory ld1 09:26 Acuity: PERRI 4 ld1 Triage Assessment: 09:27 General: Appears in no apparent distress. comfortable, Behavior is calm, cooperative, ld1 appropriate for age. Pain: Complains of pain in pelvis Pain does not radiate. Pain currently is 4 out of 10 on a pain scale. Quality of pain is described as throbbing. EENT: No signs and/or symptoms were reported regarding the EENT system. Neuro: Level of Consciousness is awake, alert, obeys commands, Oriented to person, place, time, situation. Cardiovascular: Capillary refill < 3 seconds Patient's skin is warm and dry. Respiratory: Airway is patent Respiratory effort is even, unlabored. GI: Abdomen is flat, non-distended. : No signs and/or symptoms were reported regarding the genitourinary system. Derm: Abscess located on pelvis. Musculoskeletal: No signs and/or symptoms reported regarding the musculoskeletal system. 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 - Social history:: Smoking status: Patient reports the use of cigarette tobacco products, smokes one-half pack cigarettes per day, Patient uses alcohol, on a daily basis. Screenin:58 [facility] ED Fall Risk Assessment (Adult) History of falling in the last 3 months, db including since admission No falls in past 3 months (0 pts) Confusion or Disorientation No (0 pts) Intoxicated or Sedated No (0 pts) Impaired Gait No (0 pts) Mobility Assist Device Used No (0 pt) Altered Elimination No (0 pt) Score/Fall Risk Level 0 - 2 = Low Risk Oriented to surroundings, Maintained a safe environment. Abuse screen: Denies threats or abuse. Denies injuries from another. Nutritional screening: No deficits noted. Tuberculosis screening: No symptoms or risk factors identified. Assessment: 09:35 Reassessment: Patient appears in no apparent distress at this time. Patient and/or db family updated on plan of care and expected duration. Pain level reassessed. Patient is alert, oriented x 3, equal unlabored respirations, skin warm/dry/pink. patient has abscess to left inner groin. General: Appears in no apparent distress. comfortable, Behavior is calm, cooperative. Pain: Complains of pain in groin. Neuro: No deficits noted. Level of Consciousness is awake, alert, obeys commands, Oriented to person, place, time, situation. Cardiovascular: No deficits noted. Respiratory: No deficits noted. Airway is patent Respiratory effort is even, unlabored, Respiratory pattern is regular, symmetrical. GI: No deficits noted. No signs and/or symptoms were reported involving the gastrointestinal system. : No deficits noted. No signs and/or symptoms were reported regarding the genitourinary system. 09:55 Reassessment: I\\T\\D supplies placed at bedside. Notified provider Martínez lidocaine at db bedside as well. Vital Signs: 09:26 BP 177 / 81; Pulse 103; Resp 18; Temp 98.0(O); Pulse Ox 100% on R/A; Weight 65.77 kg; ld1 Height 5 ft. 2 in. (157.48 cm); Pain 4/10; 10:22 BP 162 / 104; Pulse 98; Resp 18; Pulse Ox 100% on R/A; db 09:26 Body Mass Index 26.52 (65.77 kg, 157.48 cm) ld1 ED Course: 09:21 Patient arrived in ED. rg4 09:22 Sharon Martínez [facility]-C [facility] snw 09:22 Antonino Yun MD is Attending Physician. snw 09:27 Triage completed. ld1 09:27 Arm band placed on right wrist. ld1 09:31 Yoselyn Brown, RN is Primary Nurse. db 09:59 Assist provider with I \\T\\ D: Patient tolerated well. db 10:22 Patient has correct armband on for positive identification. Bed in low position. Call db light in reach. Side rails up X 1. 10:22 Patient did not have IV access during this emergency room visit. db Administered Medications: 09:50 Drug: Lidocaine (1 %) 5 mg Volume: 5 ml; Route: Infiltration; db 10:18 Follow up: Response: No adverse reaction; used by provider in I\\T\\D db 09:50 Drug: Hibiclens (chlorhexidine) Liquid 4 % 1 application Route: Topical; Site: wound; db 09:50 Drug: Boostrix Tdap 0.5 ml Route: IM; Site: right deltoid; db 10:18 Follow up: Response: No adverse reaction db 09:50 Drug: Bactrim (trimethoprim-sulfamethoxazole) (160 mg-800 mg (DS) 1 tablet Route: PO; db 10:18 Follow up: Response: No adverse reaction db Medication: 10:22 VIS not applicable for this client. db Intake: Outcome: 10:02 Discharge ordered by . snw 10:22 Discharged to home ambulatory. db 10:22 Condition: stable 10:22 Discharge instructions given to patient, Instructed on discharge instructions, follow up and referral plans. Demonstrated understanding of instructions, Prescriptions given X 3. 10:28 Patient left the ED. db Signatures: Sharon Martínez FNP-C GRILL CHEF-Chana Ochoa rg4 Janeth Kim RN RN ld1 Yoselyn Brown, RN RN db
[2022-05-01 10:34] VITALS: TEMP 98; O2SAT 100
[2022-05-01 10:35] VITALS: BP 162/104
== END 2022-05-01 10:28 | disposition home or self-care (01) ==
LOC: ER 09:18
PROC: 0H9AXZZ Drainage of Inguinal Skin, External Approach (ICD-10-PCS; principal; 2022-05-01)
DX: L02.214 Cutaneous abscess of groin (principal); F17.210 Nicotine dependence, cigarettes, uncomplicated
CPT/HCPCS: 96372; 99283; J2001

== ENCOUNTER 2024-04-17 10:45 | Emergency (ER) | payer BC ==
--- OUTSIDE RECORDS SUMMARY | 2024-04-17 10:50 | XMS REPORT | Continuity of Care Document ---
Author Name Unknown Address [address] [facility] [place] [address] [facility] thconnect Address [address] [facility] [address] [place] [address] Care Team Providers Care Apprentice Painter Brush Name Role Phone Jenny Vizcarra Primary Care Physician + [phone] Doctor Unassigned, Maybee Attending Clinician U Jenny Evans Attending Clinician [phone] JENNY FIGUEROA Attending Clinician Unavailable Ofelia Medrano Attending Clinician [phone] Unknown, Attending Attending Clinician Unavailab OFELIA Coe Attending Clinician Unavailable Lab, Ang - Db Attending Clinician Unavailable Jenny Vizcarra Attending Clinician [phone] Doctor Unassigned, Maybee Attending Clinician U Rena Obregon Attending Clinician [phone] Unknown, Attending Attending Clinician Unavailab RENA Garcia Attending Clinician Unavailable Lab, Ang - Db Attending Clinician Unavailable WAQAR BEEBE Attending Clinician Unavailable DAIANA HAMPTON Attending Clinician Unavailable Daiana Galvan Attending Clinician [phone] ANTOINE SANCHEZ Attending Clinician Unavailable Daniel COLEMAN, Antoine Attending Clinician [phone] Fabian Castillo MD Attending Clinician [phone] Annie Cutler LMSW Attending Clinician [phone] Omer ALBARRAN, Mary Francis Attending Clinician Unavaila ble Only, Jordy Db Test Attending Clinician Unavailabl e Vaccine, Adc Family Attending Clinician Unavaila JULIO CESAR [place] Attending Clinician Unavailable Julio Cesar Villeda MD Attending Clinician [phone] Provider, [facility] Attending Clinician Un available Christianne Higginbotham Attending Clinician + CHRISTIANNE RIZO Attending Clinician Unavail able CHRISTIANNE RIZO Admitting Clinician Unavail able Payers Payer Name Policy Type Policy Number Effective Date Expirati on Date Source Problems Condition Name Condition Details Condition Category Status Onset Date Resolution Date Last Treatment Date Treating Clinician Comments Source Uncontroll ed hypertensi on Uncontroll ed hypertensi on Disease Active 06-18 00:00: 00 [facility] Tobacco use disorder Tobacco use disorder Disease Active 18 00:00: 00 [facility] Other general counseling and advice for contracept meme management Other general counseling and advice for contracept meme management Disease Active 2-05 00:00: 00 [facility] Elevated blood pressure reading without diagnosis of hypertensi on Elevated blood pressure reading without diagnosis of hypertensi on Disease Active 2-05 00:00: 00 [facility] Over weight Over weight Disease Active 2-05 00:00: 00 [facility] History of tubal ligation History of tubal ligation Disease Active 2-05 00:00: 00 [facility] Allergies, Adverse Reactions, Alerts Allergy Name Allergy Type Status Severity Reaction(s) Onset Date Inactive Date Treating Clinician Comments Source NO KNOWN ALLERGIE S Drug Class Active [facility] Social History Social Habit Start Date Stop Date Quantity Comments Source [facility] of tobacco use Cigarette Smoker [facility] Alcoholic beverage intake 2023-12-06 00:00:00 2023-12-06 00:00:00 Current drinker of alcohol (finding) [facility] Cigarettes smoked current (pack per day) - Reported 2023-10-28 00:00:00 2023-10-28 00:00:00 [facility] Cigarette pack-years 2023-10-28 00:00:00 2023-10-28 00:00:00 [facility] Tobacco use and exposure 2023-10-28 00:00:00 2023-10-28 00:00:00 Smokeless tobacco non-user [facility] History of Social function 2023-06-29 00:00:00 2023-06-29 00:00:00 [facility] Alcohol intake 2023-06-29 00:00:00 2023-06-29 00:00:00 Current drinker of alcohol (finding) [facility] Exposure to SARS-CoV-2 (event) 2021-05-19 00:00:00 2021-06-18 09:50:00 Not sure [facility] Sex assigned at 1975 00:00:00 1975 00:00:00 [facility] Smoking Status Start Date Stop Date Source Smokes tobacco daily 2023-10-28 00:00:00 [facility] Occasional tobacco smoker 2021-06-18 00:00:00 [facility] Medications Ordered Medication Name Filled Medication Name Start Date Stop Date Current Medication? Ordering Clinician Indication Dosage Frequency Signature (SIG) Comments Components Source amLODIPine 5 mg tablet 2023-04 00:00: 00 Yes [id number] 5mg Take 1 tablet by mouth in the morning. [facility] benzonatate 200 mg capsule 2023-04 00:00: 00 03-09 05:59 :00 Yes [id number] 200mg Take 1 capsule by mouth 3 (three) times daily as needed for Cough for up to 10 days. [facility] fluticasone propionate 50 mcg/actuati on nasal spray 2023-04 00:00: 00 03-06 05:59 :00 Yes [id number] 1{spray } Use 1 [place] in each nostril in the morning for 7 days. [facility] ferrous sulfate 325 mg (65 mg iron) tablet 9- 00:00: 00 03-13 00:00 :00 No [id number] 325mg Take 1 tablet by mouth in the morning and 1 tablet in the evening. [facility] ferrous sulfate 325 mg (65 mg iron) tablet 12-07 00:00: 00 12-11 00:00 :00 No [id number] 325mg Take 1 tablet by mouth in the morning and 1 tablet in the evening. [facility] amLODIPine 5 mg tablet 12-05 00:00: 00 03-13 00:00 :00 No [id number] 5mg Take 1 tablet by mouth in the morning. [facility] amLODIPine 5 mg tablet 11-19 00:00: 00 12-05 00:00 :00 No [id number] 5mg TAKE 1 TABLET BY MOUTH IN THE MORNING [facility] amLODIPine 5 mg tablet 11-01 00:00: 00 11-19 00:00 :00 No [id number] 5mg TAKE 1 TABLET BY MOUTH IN THE MORNING [facility] AMLODIPINE 5 mg tablet 6-28 00:00: 00 11-01 00:00 :00 No [id number] 5mg TAKE 1 TABLET BY MOUTH IN THE MORNING [facility] AMLODIPINE 5 mg tablet 5-27 00:00: 00 09-28 00:00 :00 No [id number] 5mg TAKE 1 TABLET BY MOUTH IN THE MORNING [facility] amLODIPine 5 mg tablet 3-28 00:00: 00 Yes [id number] 5mg Take 1 tablet by mouth in the morning. [facility] amoxicillin -clavulanat e (AUGMENTIN) 875-125 mg per tablet 2022-04 0 00:00: 00 01-20 04:59 :00 No [id number] 1{tbl} Take 1 tablet by mouth in the morning and 1 tablet in the evening. Do all this for 10 days. [facility] dicyclomine 10 mg capsule 2022-04 0 00:00: 00 01-17 04:59 :00 No [id number] 10mg Take 1 capsule by mouth 4 (four) times daily for 7 days. [facility] bismuth subsalicyla te (PEPTO-BISM OL) 262 mg chewable tablet 2022-04 0-09 00:00: 00 01-13 04:59 :00 No [id number] 524mg Take 2 tablets by mouth every 4 (four) hours as needed for Pain (scale 4-6) or Pain (scale 7-10) for up to 3 days. [facility] amLODIPine 5 mg tablet 9-26 00:00: 00 06-28 00:00 :00 No [id number] 5mg Take 1 tablet by mouth in the morning. Follow-up for refills and fasting labs. [facility] AMLODIPINE 5 mg tablet 7- 00:00: 00 Yes [id number] 5mg TAKE 1 TABLET BY MOUTH DAILY. FOLLOW-UP FOR REFILLS AND FASTING LABS. [facility] amLODIPine 5 mg tablet 6-12 00:00: 00 10-10 00:00 :00 No [id number] 5mg Take 1 tablet by mouth daily. Follow-up for refills and fasting labs. [facility] Immunizations Ordered Immunization Name Filled Immunization Name Date Status Comments Source Flu Injectable MDCK Pres-Free (FLUCELVAX) 2023-12-06 00:00:00 Completed [facility] SARS-COV-2 COVID-19 PFIZER VACCINE 2020-11-01 00:00:00 Completed [facility] SARS-COV-2 COVID-19 PFIZER VACCINE 2020-11-01 00:00:00 Completed [facility] SARS-COV-2 COVID-19 PFIZER VACCINE 2020-11-01 00:00:00 Completed [facility] SARS-COV-2 COVID-19 PFIZER VACCINE 2020-11-01 00:00:00 Completed [facility] SARS-COV-2 COVID-19 PFIZER VACCINE 2020-10-11 00:00:00 Completed [facility] SARS-COV-2 COVID-19 PFIZER VACCINE 2020-10-11 00:00:00 Completed [facility] SARS-COV-2 COVID-19 PFIZER VACCINE 2020-10-11 00:00:00 Completed [facility] SARS-COV-2 COVID-19 PFIZER VACCINE 2020-10-11 00:00:00 Completed [facility] TDAP 2016-12-22 00:00:00 Completed [facility] TDAP 2016-12-22 00:00:00 Completed [facility] TDAP 2016-12-22 00:00:00 Completed [facility] TDAP 2016-12-22 00:00:00 Completed [facility] TDAP Unknown Completed [facility] SARS-COV-2 COVID-19 PFIZER VACCINE Unknown Completed [facility] TDAP Unknown Completed [facility] SARS-COV-2 COVID-19 PFIZER VACCINE Unknown Completed [facility] TDAP Unknown Completed [facility] SARS-COV-2 COVID-19 PFIZER VACCINE Unknown Completed [facility] TDAP Unknown Completed [facility] SARS-COV-2 COVID-19 PFIZER VACCINE Unknown Completed [facility] TDAP Unknown Completed [facility] SARS-COV-2 COVID-19 PFIZER VACCINE Unknown Completed [facility] TDAP Unknown Completed [facility] SARS-COV-2 COVID-19 PFIZER VACCINE Unknown Completed [facility] TDAP Unknown Completed [facility] SARS-COV-2 COVID-19 PFIZER VACCINE Unknown Completed [facility] TDAP Unknown Completed [facility] SARS-COV-2 COVID-19 PFIZER VACCINE Unknown Completed [facility] TDAP Unknown Completed [facility] SARS-COV-2 COVID-19 PFIZER VACCINE Unknown Completed [facility] TDAP Unknown Completed [facility] SARS-COV-2 COVID-19 PFIZER VACCINE Unknown Completed [facility] TDAP Unknown Completed [facility] SARS-COV-2 COVID-19 PFIZER VACCINE Unknown Completed [facility] TDAP Unknown Completed [facility] SARS-COV-2 COVID-19 PFIZER VACCINE Unknown Completed [facility] TDAP Unknown Completed [facility] SARS-COV-2 COVID-19 PFIZER VACCINE Unknown Completed [facility] TDAP Unknown Completed [facility] SARS-COV-2 COVID-19 PFIZER VACCINE Unknown Completed [facility] Flu Injectable MDCK Pres-Free (FLUCELVAX) Unknown Completed [facility] TDAP Unknown Completed [facility] SARS-COV-2 COVID-19 PFIZER VACCINE Unknown Completed [facility] Flu Injectable MDCK Pres-Free (FLUCELVAX) Unknown Completed [facility] TDAP Unknown Completed [facility] SARS-COV-2 COVID-19 PFIZER VACCINE Unknown Completed [facility] Flu Injectable MDCK Pres-Free (FLUCELVAX) Unknown Completed [facility] TDAP Unknown Completed [facility] SARS-COV-2 COVID-19 PFIZER VACCINE Unknown Completed [facility] Flu Injectable MDCK Pres-Free (FLUCELVAX) Unknown Completed [facility] TDAP Unknown Completed [facility] SARS-COV-2 COVID-19 PFIZER VACCINE Unknown Completed [facility] Flu Injectable MDCK Pres-Free (FLUCELVAX) Unknown Completed [facility] TDAP Unknown Completed [facility] SARS-COV-2 COVID-19 PFIZER VACCINE Unknown Completed [facility] Flu Injectable MDCK Pres-Free (FLUCELVAX) Unknown Completed [facility] Vital Signs Vital Name Observation Time Observation Value Comments S ource Systolic blood pressure 2024-03-13 16:00:00 120 mm[Hg] [facility] Diastolic blood pressure 2024-03-13 16:00:00 70 mm[Hg] [facility] Body temperature 2024-03-13 15:23:00 36.56 Letha [facility] Body height 2024-03-13 15:23:00 157.5 cm [facility] Body weight 2024-03-13 15:23:00 66.225 kg [facility] BMI 2024-03-13 15:23:00 26.70 kg/m2 [facility] Oxygen saturation in Arterial blood by Pulse oximetry 2024-03-13 15:23:00 98 /min [facility] Systolic blood pressure 2024-02-27 22:24:00 167 mm[Hg] [facility] Diastolic blood pressure 2024-02-27 22:24:00 100 mm[Hg] [facility] Heart rate 2024-02-27 22:24:00 105 /min [facility] Body temperature 2024-02-27 22:24:00 36.83 Letha [facility] Respiratory rate 2024-02-27 22:24:00 17 /min [facility] Body weight 2024-02-27 22:24:00 66.31 kg [facility] BMI 2024-02-27 22:24:00 26.74 kg/m2 [facility] Oxygen saturation in Arterial blood by Pulse oximetry 2024-02-27 22:24:00 98 /min [facility] Systolic blood pressure 2023-12-06 16:43:00 147 mm[Hg] [facility] Diastolic blood pressure 2023-12-06 16:43:00 88 mm[Hg] [facility] Heart rate 2023-12-06 16:42:00 89 /min [facility] Body temperature 2023-12-06 16:42:00 36.83 Letha [facility] Respiratory rate 2023-12-06 16:42:00 18 /min [facility] Body height 2023-12-06 16:42:00 157.5 cm [facility] Body weight 2023-12-06 16:42:00 61.644 kg [facility] BMI 2023-12-06 16:42:00 24.86 kg/m2 [facility] Oxygen saturation in Arterial blood by Pulse oximetry 2023-12-06 16:42:00 100 /min [facility] Systolic blood pressure 2023-10-28 19:27:00 160 mm[Hg] [facility] Diastolic blood pressure 2023-10-28 19:27:00 85 mm[Hg] [facility] Heart rate 2023-10-28 19:27:00 104 /min [facility] Body temperature 2023-10-28 19:27:00 36.72 Letha [facility] Respiratory rate 2023-10-28 19:27:00 18 /min [facility] Body height 2023-10-28 19:27:00 157.5 cm [facility] Body weight 2023-10-28 19:27:00 65.346 kg [facility] BMI 2023-10-28 19:27:00 26.35 kg/m2 [facility] Oxygen saturation in Arterial blood by Pulse oximetry 2023-10-28 19:27:00 98 /min [facility] Systolic blood pressure 2023-06-29 16:14:00 180 mm[Hg] [facility] Diastolic blood pressure 2023-06-29 16:14:00 85 mm[Hg] [facility] Heart rate 2023-06-29 16:13:00 91 /min [facility] Body temperature 2023-06-29 16:13:00 36.94 Letha [facility] Body height 2023-06-29 16:13:00 157.5 cm [facility] Body weight 2023-06-29 16:13:00 66.225 kg [facility] BMI 2023-06-29 16:13:00 26.70 kg/m2 [facility] Systolic blood pressure 2023-06-27 20:49:00 177 mm[Hg] [facility] Diastolic blood pressure 2023-06-27 20:49:00 90 mm[Hg] [facility] Heart rate 2023-06-27 20:48:00 102 /min [facility] Body temperature 2023-06-27 20:48:00 37.11 Letha [facility] Respiratory rate 2023-06-27 20:48:00 16 /min [facility] Body weight 2023-06-27 20:48:00 67.132 kg [facility] BMI 2023-06-27 20:48:00 27.07 kg/m2 [facility] Oxygen saturation in Arterial blood by Pulse oximetry 2023-06-27 20:48:00 100 /min [facility] Systolic blood pressure 2023-01-09 18:01:00 158 mm[Hg] [facility] Diastolic blood pressure 2023-01-09 18:01:00 83 mm[Hg] [facility] Systolic blood pressure 2023-01-09 17:49:00 157 mm[Hg] [facility] Diastolic blood pressure 2023-01-09 17:49:00 78 mm[Hg] [facility] Heart rate 2023-01-09 17:49:00 99 /min [facility] Body temperature 2023-01-09 17:49:00 36.72 Letha [facility] Respiratory rate 2023-01-09 17:49:00 16 /min [facility] Body weight 2023-01-09 17:49:00 65.772 kg [facility] BMI 2023-01-09 17:49:00 26.52 kg/m2 [facility] Oxygen saturation in Arterial blood by Pulse oximetry 2023-01-09 17:49:00 98 /min [place] [facility] Procedures Procedure Date / Time Performed Performing Clinicia n Source POCT MOLECULAR FLU 2024-02-27 22:36:00 Ofelia Hall [facility] FLU VACC (), 6 MO-64 YRS, .5ML, IM, TIV (FLUCELVAX) 2023-12-06 16:56:09 Jenny Figueroa [facility] POCT MOLECULAR STREP 2023-10-28 19:34:00 Unknown, Atte nding [facility] POCT SARS-COV-2 ANTIGEN (BINAX NOW) 2023-06-27 20:35:00 Daiana Hampton [facility] ASSIGNMENT OF BENEFITS 2023-01-09 17:38:12 Docto r Unassigned, Maybee [facility] Encounters Start Date/Time End Date/Time Encounter Type Admission Type Attending Clinicians Care Facility Care Department Encounter ID Source 2024-02-22 00:00:00 2024-03-30 18:20:53 Patient Secure Msg Doctor Unassigned, Maybee Doctor Unassigned, Maybee [facility] 1.2.840.114 350.1.13.10 4.2.7.2.686 [id number] [facility] 2024-03-13 09:30:00 2024-03-13 10:00:00 Office Visit Jenny Figueroa [facility] 1..840.114 350.1.13.10 4.2.7.2.686 [id number] [facility] 2024-03-13 09:30:00 2024-03-13 09:30:00 Outpatient R JENNY FIGUEROA [facility] [id number] [facility] 2024-02-27 15:40:00 2024-02-27 16:00:00 Urgent Care Kimberly Hallcecilemelly Unknown, Attending [facility] 1..840.114 350.1.13.10 4.2.7.2.686 [id number] [facility] 2024-02-27 15:40:00 2024-02-27 15:40:00 Outpatient R KIMBERLY HALLLUIS FERNANDO [facility] [id number] [facility] 2023-12-11 00:00:00 2024-01-13 18:21:38 Patient Secure Msg Doctor Unassigned, Maybee Doctor Unassigned, Maybee [facility] ([facility]) 1.840.114 350.1.13.10 4.2.7.2.686 [id number] [facility] 2023-12-12 00:00:00 2023-12-13 08:59:04 Telephone Jenny Figueroa [facility] 1.2.840.114 350.1.13.10 4.2.7.2.686 [id number] [facility] 2023-12-12 00:00:00 2023-12-12 14:46:39 Telephone Jenny Figueroa [facility] 1.2840.114 350.1.13.10 4.2.7.2.686 [id number] [facility] 2023-12-11 00:00:00 2023-12-11 12:41:02 Letter (Out) [facility] 1.2840.114 350.1.13.10 4.2.7.2.686 [id number] [facility] 2023-12-08 00:00:00 2023-12-08 21:22:12 Telephone Jenny Figueroa [facility] 1.2840.114 350.1.13.10 4.2.7.2.686 [id number] [facility] 2023-12-06 12:45:00 2023-12-06 13:00:00 Hog Tender Visit Lab, Ang - Jenny Gonzales, Ang - Tad [facility] 1.2840.114 350.1.13.10 4.2.7.2.686 [id number] [facility] 2023-12-06 11:30:00 2023-12-06 12:01:43 Outpatient R JENNY FIGUEROA [facility] [id number] [facility] 2023-12-06 11:30:00 2023-12-06 12:01:43 Office Visit Jenny Figueroa Vaishali [facility] 1.2840.114 350.1.13.10 4.2.7.2.686 [id number] [facility] 2023-11-25 00:00:00 2023-11-27 09:36:35 Refill Jenny Figueroa [facility] 1.284.114 350.1.13.10 4.2.7.2.686 [id number] [facility] 2023-11-18 00:00:00 2023-11-20 16:45:27 Refill Jenny Figueroa [facility] 1.2840.114 350.1.13.10 4.2.7.2.686 [id number] [facility] 2023-11-01 00:00:00 2023-11-02 20:58:27 Refill CarlottaJustice jameslie [facility] 1.2840.114 350.1.13.10 4.2.7.2.686 [id number] [facility] 2023-09-22 00:00:00 2023-10-28 18:25:18 Patient Secure Msg Doctor Unassigned, Maybee [facility] 1.2840.114 350.1.13.10 4.2.7.2.686 [id number] [facility] 2023-10-28 14:20:00 2023-10-28 14:40:00 Urgent Care Rena Gutierres Unknown, Attending [facility] 1.2840.114 350.1.13.10 4.2.7.2.686 [id number] [facility] 2023-10-28 14:20:00 2023-10-28 14:20:00 Outpatient R RENA GUTIERRES [facility] [id number] [facility] 2023-09-29 00:00:00 2023-09-29 14:13:45 Refill Jenny Fig[facility]ero[facility] 1.2840.114 350.1.13.10 4.2.7.2.686 [id number] [facility] 2023-09-21 00:00:00 2023-09-21 13:28:57 Telephone Jenny Figueroa [facility] 1.2840.114 350.1.13.10 4.2.7.2.686 [id number] [facility] 2023-09-18 07:30:00 2023-09-18 08:03:30 Outpatient R JENNY FIGUEROA [facility] [id number] [facility] 2023-09-18 07:30:00 2023-09-18 07:45:00 Hog Tender Visit Lab, Ang - Db [facility] 1.2.840.114 350.1.13.10 4.2.7.2.686 [id number] [facility] 2023-06-29 11:30:00 2023-06-29 11:30:46 Outpatient R JENNY FIGUEROA [facility] [id number] [facility] 2023-06-29 11:30:00 2023-06-29 11:30:46 Office Visit Jenny Figueroa [facility] 1.2.840.114 350.1.13.10 4.2.7.2.686 [id number] [facility] 2023-06-27 15:20:00 2023-06-27 16:05:41 Outpatient R DAIANA HAMPTON [facility] [id number] [facility] 2023-06-27 15:20:00 2023-06-27 15:40:00 Urgent Care Berta Daiana Unknown, Attending [facility] 1.2.840.114 350.1.13.10 4.2.7.2.686 [id number] [facility] 2023-01-09 12:20:00 2023-01-09 12:57:15 Outpatient R ANTOINE SANCHEZ [facility] [id number] [facility] 2023-01-09 12:20:00 2023-01-09 12:57:15 Urgent Care Antoine Sanchez Unknown, Attending [facility] 1.2840.114 350.1.13.10 4.2.7.2.686 [id number] [facility] 2023-01-09 00:00:00 2023-01-09 00:00:00 Orders Only Doctor Unassigned, Maybee [facility] 1.2840.114 350.1.13.10 4.2.7.2.686 [id number] [facility] 2022-01-25 00:00:00 2022-01-25 00:00:00 Refill Jenny Fig[facility] 1.2840.114 350.1.13.10 4.2.7.2.686 [id number] [facility] 2021-12-23 00:00:00 2021-12-23 00:00:00 Refill Jenny Figueroa [facility] [facility] 1.2840.114 350.1.13.10 4.2.7.2.686 [id number] [facility] 2021-10-05 00:00:00 2021-10-05 00:00:00 Refill Jenny Figueroa [facility] 1.2840.114 350.1.13.10 4.2.7.2.686 [id number] [facility] 2021-09-09 00:00:00 2021-09-09 00:00:00 Refill Fabian Castillo [facility] 1.2840.114 350.1.13.10 4.2.7.2.686 [id number] [facility] 2021-08-13 00:00:00 2021-08-13 00:00:00 Refill Fabian Castillo [facility] 1.2.840.114 350.1.13.10 4.2.7.2.686 [id number] [facility] 2021-07-19 00:00:00 2021-07-19 00:00:00 Refill Jenny Figueroa Vaishali [facility] 1.2.840.114 350.1.13.10 4.2.7.2.686 [id number] [facility] 2021-07-17 00:00:00 2021-07-17 00:00:00 Refill Justice Figueroaliluna Tom [facility] 1.2840.114 350.1.13.10 4.2.7.2.686 [id number] [facility] 2021-06-25 00:00:00 2021-06-25 00:00:00 Patient Secure Msg Doctor Unassigned, Maybee [facility] 1.2840.114 350.1.13.10 4.2.7.2.686 [id number] [facility] 2021-06-21 00:00:00 2021-06-21 00:00:00 Patient Outreach Annie Cutler [facility] 1.2840.114 350.1.13.10 4.2.7.2.686 [id number] [facility] 2021-06-18 10:00:00 2021-06-18 10:00:00 Outpatient JENNY STEPHENSON [facility] [id number] [facility] 2021-06-12 17:00:00 2021-06-12 17:00:00 Outpatient DAIANA VALENCIA [facility] [id number] [facility] 2021-06-12 00:00:00 2021-06-12 00:00:00 Orders Only Doctor Unassigned, Maybee [facility] 1.114 350.1.13.10 4.2.7.2.686 [id number] [facility] 2021-04-18 00:00:00 2021-04-18 00:00:00 Telephone Mary Tello [facility] 1.114 350.1.13.10 4.2.7.2.686 [id number] [facility] 2021-04-17 12:45:00 2021-04-17 13:00:00 Laboratory Only Only, Ang Db Gilmar [facility] 1..114 350.1.13.10 4.2.7.2.686 [id number] [facility] 2021-04-17 12:45:00 2021-04-17 12:45:00 Outpatient R NENITA RENA [facility] [id number] [facility] 2020-11-01 09:40:00 2020-11-01 10:28:44 Outpatient R NENITA RENA [facility] [id number] [facility] 2020-11-01 09:35:55 2020-11-01 09:45:55 Imm/Inj Visit Vaccine, Celestine Mccarty Nenita [facility] 1.84.114 350.1.13.10 4.2.7.2.686 [id number] [facility] 2020-11-01 09:30:00 2020-11-01 09:30:00 Outpatient JULIO CESAR LE [facility] [id number] [facility] 2020-10-11 09:43:58 2020-10-11 10:29:19 Imm/Inj Visit Vaccine, Julio Cesar Maria [facility] 1.2.840.114 350.1.13.10 4.2.7.2.686 [id number] [facility] 2020-10-11 08:57:06 2020-10-11 10:28:34 Urgent Care Provider, [facility] Julio Cesar Villeda [facility] 1.840.114 350.1.13.10 4.2.7.2.686 [id number] [facility] 2020-10-11 09:20:00 2020-10-11 09:20:00 Outpatient R JULIO CESAR VILLEDA [facility] [id number] [facility] 2020-06-12 12:53:33 2020-06-12 13:32:20 Office Visit Christianne Rizo [facility] B[facility] MATERNAL & CHILD [facility] 1.0.114 350.1.13.10 4.2.7.2.686 [id number] [facility] 2020-06-12 13:15:00 2020-06-12 13:15:00 Outpatient R CHRISTIANNE RIZO [facility] [id number] [facility] 2020-06-03 06:30:13 2020-06-03 23:59:00 Outpatient R CHRISTIANNE RIZO [facility] [id number] [facility] 2020-06-03 06:30:13 2020-06-03 23:59:00 Hospital Encounter Christianne Rizo [facility] 1..114 350.1.13.10 4.2.7.2.686 [id number] [facility] 2020-05-14 00:00:00 2020-05-14 00:00:00 Telephone Christianne Rizo [facility] 1.840.114 350.1.13.10 4.2.7.2.686 [id number] [facility] 2020-05-08 12:45:28 2020-05-08 13:45:29 Office Visit EdisoncarlosChristianne santoyo [facility] 1.2.840.114 350.1.13.10 4.2.7.2.686 [id number] [facility] 2020-05-08 12:45:00 2020-05-08 12:45:00 Outpatient R CHRISTIANNE RIZO [facility] [id number] [facility] 2020-05-08 00:00:00 2020-05-08 00:00:00 Orders Only Doctor Unassigned, Maybee [facility] 1..840.114 350.1.13.10 4.2.7.2.686 [id number] [facility] Results Test Description Test Time Test Comments Results Result Co mments Source [id number] 19:42:22* Test Item Value Reference Range Interpretation Comme nts POCT Molecular Strep (test c ode = 44997-7) Negative Negative Lab Interpretation (test cod e = 96973-6) Normal [facility] SARS-COV-2 ANTIGEN (BINAX NOW)2023-06-27 20:50:00* Test Item Value Reference Range Interpretation Comme nts POCT SARS-COV-2 ANTIGEN (myriam t code = 17027-6) Positive Not Detected A On board controls acceptable with C Line (test code = 3574) Yes Lab Interpretation (test cod e = 11495-5) Abnormal [facility]
--- NOTE | 2024-04-17 11:28 | ER ---
Nurse's Notes [facility] Name: Eugenia Valenzuela Age: 48 yrs Sex: Female : 1975 Arrival Date: 04/17/2024 Time: 10:45 Bed 4 Private MD: Diagnosis: Sebaceous cyst;Dysmenorrhea, unspecified;Essential (primary) hypertension Presentation: 04/17 10:53 Chief complaint: Patient states: menstrual cramping and increased vaginal bleeding with aa5 "small clots" , pt states "I am changing my tampon about every 2 hours". Pt states "I also have an ingrown hair on my private area". Pt states "I forgot to take my blood pressure medication today". Coronavirus screen: At this time, the client does not indicate any symptoms associated with coronavirus-19. Ebola Screen: Patient denies travel to an Ebola-affected area in the 21 days before illness onset. Initial Sepsis Screen: Does the patient meet any 2 criteria? HR > 90 bpm. Does the patient have a suspected source of infection? No. Patient's initial sepsis screen is negative. Risk Assessment: Do you want to hurt yourself or someone else? Patient reports no desire to harm self or others. Onset of symptoms was April 16, 2024. 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 - Infectious Disease History:: Denies. - Social history:: Smoking status: Patient reports the use of cigarette tobacco products. Screenin:36 [facility] ED Fall Risk Assessment (Adult) History of falling in the last 3 months, ll1 including since admission No falls in past 3 months (0 pts) Confusion or Disorientation No (0 pts) Intoxicated or Sedated No (0 pts) Impaired Gait No (0 pts) Mobility Assist Device Used No (0 pt) Altered Elimination No (0 pt) Score/Fall Risk Level 0 - 2 = Low Risk Maintained a safe environment, Hourly rounding (assess needs \\T\\ fall precautionary measures) done. Abuse screen: Denies threats or abuse. Nutritional screening: No deficits noted. Tuberculosis screening: No symptoms or risk factors identified. Assessment: 11:35 General: Appears in no apparent distress. Behavior is calm, cooperative, appropriate ll1 for age. Pain: Complains of pain in pelvis. Neuro: No deficits noted. GI: Reports cramping. : Reports vaginal bleeding that is bright red, with clots, moderate flow. Derm: Reports cyst L inner wrist. 11:37 GI: Bowel sounds present X 4 quads. Abd is soft and non tender X 4 quads. ll1 Vital Signs: 10:53 BP 205 / 110; Pulse 88; Resp 18 S; Temp 97.8(TE); Pulse Ox 100% on R/A; Weight 65.77 kg aa5 (R); Height 5 ft. 2 in. (R); 11:35 BP 151 / 99; Pulse 85; Resp 16; Pulse Ox 100% on R/A; ll1 10:53 Body Mass Index 26.52 (65.77 kg, 157.48 cm) aa5 ED Course: 10:50 Patient arrived in ED. al6 10:50 Antonino Yun MD is Attending Physician. alejandra 10:53 Arm band placed on. aa5 10:55 Triage completed. aa5 10:57 Brian Ervin, AVIS is Primary Nurse. ll1 11:27 Lily Wynn MD is Referral Physician. alejandra 11:30 Jorge Mireles MD is Referral Physician. alejandra 11:37 No provider procedures requiring assistance completed. Patient did not have IV access ll1 during this emergency room visit. 11:38 Patient has correct armband on for positive identification. Bed in low position. ll1 Provided Education on: take BP medicine when she gets home. Cardiac monitoring not applicable on this patient. Administered Medications: 11:35 Not Given (Patient Refused): [id number] mg IM once ll1 Medication: 11:38 VIS not applicable for this client. ll1 Outcome: 11:28 Discharge ordered by . alejandra 11:37 Discharged to home ambulatory, ll1 11:37 Condition: stable 11:37 Discharge instructions given to patient, Instructed on discharge instructions, follow up and referral plans. medication usage, Demonstrated understanding of instructions, follow-up care, medications, Prescriptions given X 1, 11:38 Patient left the ED. ll1 Signatures: Antonino Yun MD MD cha Calderon, Audri RN RN aa5 Brian Ervin RN RN ll1 Niki [email or web address] Corrections: (The following items were deleted from the chart) 10:56 10:53 Chief complaint: Patient states: menstrual cramping and increased vaginal aa5 bleeding with "small clots" , pt states "I am changing my tampon about every 2 hours". Pt states "I also have an ingrown hair on my private area" aa5
--- NOTE | 2024-04-17 11:28 | EDPHYS ---
Physician Documentation [facility] Name: Eugenia Valenzuela Age: 48 yrs Sex: Female : 1975 Arrival Date: 04/17/2024 Time: 10:45 Bed 4 Private MD: LIZA Physician Antonino Yun HPI: 04/17 11:24 This 48 yrs old Female presents to ER via Ambulatory with complaints of Cyst, alejandra Abdominal Cramping, Vaginal Pain. 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 - Infectious Disease History:: Denies. - Social history:: Smoking status: Patient reports the use of cigarette tobacco products. ROS: 11:24 Constitutional: Negative for fever, chills, and weight loss, Eyes: Negative for injury, alejandra pain, redness, and discharge, ENT: Negative for injury, pain, and discharge, Neck: Negative for injury, pain, and swelling, Cardiovascular: Negative for chest pain, palpitations, and edema, Respiratory: Negative for shortness of breath, cough, wheezing, and pleuritic chest pain, Abdomen/GI: Negative for abdominal pain, nausea, vomiting, diarrhea, and constipation, Back: Negative for injury and pain, MS/Extremity: Negative for injury and deformity, Skin: Negative for injury, rash, and discoloration, Neuro: Negative for headache, weakness, numbness, tingling, and seizure, Psych: Negative for depression, anxiety, suicide ideation, homicidal ideation, and hallucinations, Allergy/Immunology: Negative for hives, rash, and allergies, Endocrine: Negative for neck swelling, polydipsia, polyuria, polyphagia, and marked weight changes, Hematologic/Lymphatic: Negative for swollen nodes, abnormal bleeding, and unusual bruising, 11:24 : Positive for vaginal bleeding, menstrual abnormality, Exam: 11:24 Constitutional: This is a well developed, well nourished patient who is awake, alert, alejandra and in no acute distress. Head/Face: Normocephalic, atraumatic. Eyes: Pupils equal round and reactive to light, extra-ocular motions intact. Lids and lashes normal. Conjunctiva and sclera are non-icteric and not injected. Cornea within normal limits. Periorbital areas with no swelling, redness, or edema. ENT: Nares patent. No nasal discharge, no septal abnormalities noted. Tympanic membranes are normal and external auditory canals are clear. Oropharynx with no redness, swelling, or masses, exudates, or evidence of obstruction, uvula midline. Mucous membranes moist. Neck: Trachea midline, no thyromegaly or masses palpated, and no cervical lymphadenopathy. Supple, full range of motion without nuchal rigidity, or vertebral point tenderness. No Meningismus. Chest/axilla: Normal chest wall appearance and motion. Nontender with no deformity. No lesions are appreciated. Cardiovascular: Regular rate and rhythm with a normal S1 and S2. No gallops, murmurs, or rubs. Normal PMI, no JVD. No pulse deficits. Respiratory: Lungs have equal breath sounds bilaterally, clear to auscultation and percussion. No rales, rhonchi or wheezes noted. No increased work of breathing, no retractions or nasal flaring. Abdomen/GI: Soft, non-tender, with normal bowel sounds. No distension or tympany. No guarding or rebound. No evidence of tenderness throughout. Back: No spinal tenderness. No costovertebral tenderness. Full range of motion. MS/ Extremity: Pulses equal, no cyanosis. Neurovascular intact. Full, normal range of motion., bilateral aka Neuro: Awake and alert, GCS 15, oriented to person, place, time, and situation. Cranial nerves II-XII grossly intact. Motor strength 5/5 in all extremities. Sensory grossly intact. Cerebellar exam normal. Normal gait. Psych: Awake, alert, with orientation to person, place and time. Behavior, mood, and affect are within normal limits. Vital Signs: 10:53 BP 205 / 110; Pulse 88; Resp 18 S; Temp 97.8(TE); Pulse Ox 100% on R/A; Weight 65.77 kg aa5 (R); Height 5 ft. 2 in. (R); 11:35 BP 151 / 99; Pulse 85; Resp 16; Pulse Ox 100% on R/A; ll1 10:53 Body Mass Index 26.52 (65.77 kg, 157.48 cm) aa5 MDM: 10:50 Medical Screening Exam initiated [facility] 11:26 Differential diagnosis: dysmenorrhea, menometrorrhagia, menorrhea, nonspecific alejandra abdominal pain. Data reviewed: vital signs, nurses notes. Consideration of Admission/Observation Escalation of care including admission/observation considered. I considered the following discharge prescriptions or medication management in the emergency department Medications were administered in the Emergency Department. See MAR. Test considered but Not performed: Labs: no labs. Care significantly affected by the following chronic conditions: Hypertension, anemia, cervical rad. Administered Medications: 11:35 Not Given (Patient Refused): [id number] mg IM once ll1 Disposition Summary: 04/17/24 11:28 Discharge Ordered Notes: Location: Home alejandra Problem: new alejandra Symptoms: have improved alejandra Condition: Stable alejandra Diagnosis - Sebaceous cyst alejandra - Dysmenorrhea, unspecified alejandra - Essential (primary) hypertension alejandra Followup: alejandra - With: Private Physician - When: 2 - 3 days - Reason: Recheck today's complaints, Continuance of care, Re-evaluation by your physician Followup: alejandra - With: Lily Wynn MD - When: 2 - 3 days - Reason: Recheck today's complaints, Re-evaluation by your physician Followup: alejandra - With: Jorge Mireles MD - When: 2 - 3 days - Reason: Recheck today's complaints, Re-evaluation by your physician Discharge Instructions: - Discharge Summary Sheet alejandra - Dysmenorrhea alejandra - Epidermoid Cyst alejandra - Dysmenorrhea, Ylnm-ia-Oczf alejandra Forms: - Medication Reconciliation Form alejandra - Antibiotic Education alejandra - Prescription Opioid Use alejandra - Patient Portal Instructions [facility] - Leadership Thank You Letter [facility] Prescriptions: - Ibuprofen 600 mg Oral Tablet - take 1 tablet ORAL route every 6 hours As needed take with food; 30 tablet; [facility] Refills: 0, Product Selection Permitted Signatures: Antonino Yun MD MD cha Calderon, Audri, RN RN aa5 Brian Ervin RN ll1
[2024-04-19 02:10] VITALS: BP 151/99; TEMP 97.8; O2SAT 100
== END 2024-04-17 11:38 | disposition home or self-care (01) ==
LOC: ER 10:45
DX: N94.6 Dysmenorrhea, unspecified (principal); L72.3 Sebaceous cyst; I10 Essential (primary) hypertension; F17.210 Nicotine dependence, cigarettes, uncomplicated
CPT/HCPCS: 99283